=== PATIENT | male | born 1995 | race Caucasian/White ===

== ENCOUNTER 2016-06-07 20:12 | Emergency (ER) | payer OTHER ==
[~2016-06-07] VITALS: Ht 185.4 cm; Wt 95.3 kg
--- NOTE | ~2016-06-07 | EKG ---
[address] [address] ELECTROCARDIOGRAM REPORT Name: WHITNEY BRIDGES Room #: DEP Rafiq#: [id number] Admission: 06/07/16 Attend Phys: Discharge: 06/07/16 Date of : [birth year] Report #: [id number] THIS REPORT FOR: //name// [facility] ED Test Date: 2016-06-07 Test Time: 21:10:30 Pat Name: WHITNEY BRIDGES Department: Room: Gender: Lease Analyst: kerri : 1995 Requested By: Jj Childs Order Number: [id number] MD: Acosta Rubio Measurements Intervals [place] Rate: 70 P: -25 ND: 145 QRS: 3 QRSD: 109 T: 5 QT: 384 QTc: 415 Interpretive Statements Sinus rhythm No previous ECG available for comparison Electronically Signed On 06-08-2016 20:09:46 CDT by Acosta Rubio [email or web address] <ELECTRONICALLY SIGNED> By: Acosta Rubio MD 06/08/162008 09 09 Acosta Rubio MD /[email or web address]
[2016-06-07 21:39] LABS: HEMATOCRIT 39.2 % (42.0-52.0); HEMOGLOBIN 13.7 gm/dL (14.0-18.0); MCH 29.9 pg (26.0-34.0); MCV 85.2 fL (80.0-100.0); RBC 4.6 mil/uL (4.50-6.00); RDW 12.9 % (10.5-14.5); WBC 4.3 thou/uL (4.0-11.0)
[2016-06-07 21:49] LABS: CALCIUM 8.7 mg/dL (8.5-10.1); POTASSIUM 3.3 mmol/L (3.5-5.1)
[2016-06-07] MEDS ORDERED: PEPCID20 MG PO (22:02)
[2016-06-07] MEDS ORDERED: CARAFATE 1 GM TA1 G1 PO (22:02)
[2016-06-07 22:33] VITALS: BP 131/70
== END 2016-06-07 22:35 | disposition home or self-care (01) ==
LOC: ER 20:12
PROVIDERS: Physician Assistant
DX: R12 Heartburn (principal); Z88.0 Allergy status to penicillin; Z88.2 Allergy status to sulfonamides